=== PATIENT | female | born 1965 | race Caucasian/White ===

== ENCOUNTER 2022-08-11 05:08 | Observation (INO) | payer BC ==
[2022-08-11] MEDS ORDERED: PROTONIX 40 MG IV IV ONE ×2 (05:42→05:50)
[2022-08-11] MEDS ORDERED: BABY ASPIRIN 81 MG CHEW PO ONE (05:42)
[2022-08-11] MEDS ORDERED: Pepcid 20 MG VIAL IV ONE ×2 (05:42→05:50)
[2022-08-11] MEDS ORDERED: Nitrostat 0.4 MG (ED) SL ONE ×2 (05:42→05:50)
[2022-08-11] MEDS ORDERED: Zofran 4 MG/2 ML VIAL IV ONE (05:42)
--- NOTE | 2022-08-11 05:47 | ERPHSYRPT ---
- History of Present Illness Time Seen by Provider: 08/11/22 05:46 Historian: patient Exam Limitations: no limitations Patient Subjective Stated Complaint: chest pain/back pain since Thursday Triage Nursing Assessment: Pt ambulated into ER without difficulty. Pt alert and oriented x4, cooperative. Pt c/o midsternal chest pain since Thursday which radiates to her back. Pt describes it as sharp. Pt denies any sob. Pt c/o nausea, denies any vomiting, c/o some occasional dizziness. Physician History: 2 day hx for chest pain in this 57 yr old lady. She had similar but right sided several years ago found to be an ulcer. She is going for colonoscopy soon for her colitis; and seeing today in followup for thyroid adjustment of meds. She has never had cardiac conditions or even hptn or positive family hx or even full cardiac work up. Chest is clear without M. Abd soft and nontender without peritoneal signs. she has treated ulcerative colitis Timing/Duration: yesterday Activities at Onset: none Quality: fullness, pressure Location: substernal Chest Pain Radiation: back Severity of Pain-Max: moderate Severity of Pain-Current: moderate Modifying Factors: Improves With: nothing Associated Symptoms: nausea, dizziness, back pain Prior Chest Pain/Cardiac Workup: no prior cardiac workup, non-cardiac Nitro Today/Relief: 0.4 mg x 1, provided by ED, mild relief Aspirin Treatment Today: 81 mg x 4, provided by ED Allergies/Adverse Reactions: shrimp Adverse Reaction (Intermediate, Verified 08/11/22 05:23) Headache Home Medications: Dicyclomine HCl 1 tab PO Q6H PRN PRN 08/11/22 [History] Levothyroxine Sodium [Synthroid] 137 mcg PO DAILY 08/11/22 [History] Mesalamine 1.2 gm PO BID 08/11/22 [History] Hx Tetanus, Diphtheria Vaccination/Date Given: No Hx Influenza Vaccination/Date Given: No Hx Pneumococcal Vaccination/Date Given: No Travel Risk - International Travel Have you traveled outside of the country in past 3 weeks: No - Coronavirus Screening Are you exhibiting any of the following symptoms?: No Close contact with a COVID-19 positive Pt in past 14-21 Days: No - Vaccine Status Have you recieved a Covid-19 vaccination: No - Review of Systems Constitutional: No Fever, No Chills Eyes: No Symptoms Ears, Nose, & Throat: No Symptoms Respiratory: No Cough, No Dyspnea Cardiac: Chest Pain, No Edema, No Syncope Abdominal/Gastrointestinal: No Abdominal Pain, No Nausea, No Vomiting, No Diarrhea Genitourinary Symptoms: No Dysuria Musculoskeletal: Back Pain, No Neck Pain Skin: No Rash Neurological: No Dizziness, No Focal Weakness, No Sensory Changes Psychological: No Symptoms Endocrine: No Symptoms All Other Systems: Reviewed and Negative - Past Medical History Pertinent Past Medical History: Yes Neurological History: Migraines ENT History: No Pertinent History Cardiac History: Angina, High Cholesterol Respiratory History: No Pertinent History Endocrine Medical History: No Pertinent History Musculoskeletal History: No Pertinent History GI Medical History: Colitis, GERD History: No Pertinent History Psycho-Social History: Anxiety Female Reproductive Disorders: No Pertinent History - Past Surgical History Past Surgical History: Yes Neuro Surgical History: No Pertinent History Cardiac: No Pertinent History Respiratory: No Pertinent History Gastrointestinal: No Pertinent History Genitourinary: No Pertinent History Musculoskeletal: No Pertinent History Female Surgical History: Hysterectomy Other Surgical History: thyroidectomy - Social History Smoking Status: Never smoker Exposure to second hand smoke: No Drug Use: none Patient Lives Alone: No - Nursing Vital Signs Nursing Vital Signs: Initial Vital Signs Temperature 97.9 F 08/11/22 05:09 Pulse Rate 94 H 08/11/22 05:09 Respiratory Rate 18 08/11/22 05:09 Blood Pressure 121/71 08/11/22 05:09 O2 Sat by Pulse Oximetry 95 08/11/22 05:09 Pain Scale Pain Intensity 8 - Physical Exam General Appearance: no apparent distress, alert Eye Exam: PERRL/EOMI, eyes nml inspection Ears, Nose, Throat Exam: normal ENT inspection, moist mucous membranes Neck Exam: normal inspection, non-tender, supple, full range of motion Respiratory Exam: normal breath sounds, lungs clear, No respiratory distress Cardiovascular Exam: regular rate/rhythm, normal heart sounds Gastrointestinal/Abdomen Exam: soft, No tenderness, No mass Pelvic Exam: deferred Rectal Exam: deferred Back Exam: normal inspection, No CVA tenderness, No vertebral tenderness Extremity Exam: normal inspection, normal range of motion Neurologic Exam: alert, oriented x 3, cooperative, normal mood/affect, sensation nml, No motor deficits Skin Exam: normal color, warm, dry SpO2 Interpretation: borderline oxygenation SpO2: 95 O2 Delivery: Room Air - Course Nursing assessment & vital signs reviewed: Yes EKG Interpreted by Me: Sinus Rhythm, NORMAL AXIS, NORMAL INTERVALS, Non-specific ST Changes, Other (low voltage QRS) - Radiology Exams Chest X-ray Interpretation: Reviewed by me, Other (interstitial markings and RUL and hilar nodules) Ordered Tests: Active Orders 24 hr Category Date Time Status EKG-ER Only STAT Care 08/11/22 05:42 Active IV Insertion STAT Care 08/11/22 05:42 Active Pulse Oximetry (ED) STAT Care 08/11/22 05:42 Active CHEST 1 VIEW (PORTABLE) Stat Exams 08/11/22 05:42 Taken CHEST WITH CONTRAST [CT] Stat Exams 08/11/22 06:28 Ordered AMYLASE Stat Lab 08/11/22 06:04 Received CBC W DIFF Stat Lab 08/11/22 06:04 Completed CMP Stat Lab 08/11/22 06:04 Received D-DIMER QUANTITATIVE Stat Lab 08/11/22 06:04 Completed LIPASE Stat Lab 08/11/22 06:04 Received Lactic Acid Stat Lab 08/11/22 05:42 Completed NT PRO BNPII Stat Lab 08/11/22 06:04 Completed T4 (Thyroxine) Stat Lab 08/11/22 06:04 Received TROPONIN Q4H Lab 08/11/22 06:04 Completed TROPONIN Q4H Lab 08/11/22 09:45 Ordered TROPONIN Q4H Lab 08/11/22 13:45 Ordered TSH, 3RD Generation Stat Lab 08/11/22 06:04 Received Medication Summary Generic Name Dose Route Start Last Admin Trade Name Freq PRN Reason Stop Dose Admin Sodium Chloride 1,000 mls @ 100 mls/hr 08/11/22 05:45 08/11/22 05:56 Sodium Chloride 0.9% 1000 Ml IV 09/10/22 05:44 100 mls/hr .Q10H CORI Administration Discontinued Medications Generic Name Dose Route Start Last Admin Trade Name Freq PRN Reason Stop Dose Admin Aspirin 324 mg 08/11/22 05:42 08/11/22 05:51 Aspirin 81 Mg Tab.Chew PO 08/11/22 05:43 324 mg STAT ONE Administration Aspirin Confirm 08/11/22 05:50 Aspirin 81 Mg Tab.Chew Administered 08/11/22 05:51 Dose 324 mg .ROUTE .STK-MED ONE Methylprednisolone Sodium 0 mg 08/11/22 06:34 Succinate 40 mg/ Sterile Water IV 08/11/22 06:35 1 ml STAT STA Diphenhydramine HCl 50 mg 08/11/22 06:37 Diphenhydramine Hcl 50 Mg/Ml Vial IV 08/11/22 06:38 STAT ONE Famotidine 20 mg 08/11/22 05:42 08/11/22 05:56 Famotidine 20 Mg/1 Vial IV 08/11/22 05:43 20 mg STAT ONE Administration Famotidine Confirm 08/11/22 05:50 Famotidine 20 Mg/1 Vial Administered 08/11/22 05:51 Dose 20 mg IV .STK-MED ONE Nitroglycerin 0.4 mg 08/11/22 05:42 08/11/22 05:51 Nitroglycerin 0.4 Mg (Ed) 0.4 Mg Tab.Subl SL 08/11/22 05:43 0.4 mg STAT ONE Administration Nitroglycerin Confirm 08/11/22 05:50 Nitroglycerin 0.4 Mg (Ed) 0.4 Mg Tab.Subl Administered 08/11/22 05:51 Dose 0.4 mg SL .STK-MED ONE Ondansetron HCl 4 mg 08/11/22 05:42 08/11/22 05:56 Ondansetron Hcl 4 Mg/2 Ml Vial IV 08/11/22 05:43 4 mg STAT ONE Administration Ondansetron HCl Confirm 08/11/22 05:50 Ondansetron Hcl 4 Mg/2 Ml Vial Administered 08/11/22 05:51 Dose 4 mg .ROUTE .STK-MED ONE Pantoprazole Sodium 40 mg 08/11/22 05:42 08/11/22 05:56 Pantoprazole 40 Mg Vial IV 08/11/22 05:43 40 mg STAT ONE Administration Pantoprazole Sodium Confirm 08/11/22 05:50 Pantoprazole 40 Mg Vial Administered 08/11/22 05:51 Dose 40 mg IV .STK-MED ONE Lab/Rad Data: Laboratory Result Diagrams 08/11/22 06:04 Laboratory Results 08/11/22 08/11/22 08/11/22 Range/Units 06:04 06:04 06:04 WBC (4.0-10.5) x10^3/uL RBC (4.1-5.4) x10^6/uL Hgb (12.0-16.0) g/dL Hct (35-47) % MCV (78-100) fL MCH (26-32) pg MCHC (32-36) g/dL RDW (11.5-14.0) % Plt Count (150-450) x10^3/uL MPV (7.5-11.0) fL Gran % (36.0-66.0) % Immature Gran % (Auto) (0.00-0.4) % Nucleat RBC Rel Count (0.00-0.1) % Eos # (Auto) (0-0.5) x10^3/uL Immature Gran # (Auto) (0.00-0.03) x10^3u/L Absolute Lymphs (auto) (1.0-4.6) x10^3/uL Absolute Monos (auto) (0.0-1.3) x10^3/uL Absolute Nucleated RBC (0.00-0.01) x10^3u/L Lymphocytes % (24.0-44.0) % Monocytes % (0.0-12.0) % Eosinophils % (0.00-5.0) % Basophils % (0.0-0.4) % Absolute Granulocytes (1.4-6.9) x10^3/uL Basophils # (0-0.4) x10^3/uL D-Dimer 2.62 H* (0.0-0.50) mg/L Lactic Acid (0.4-2.0) Troponin I < 0.012 (0.000-0.034) ng/mL NT-Pro-B Natriuret Pep 62.3 (<300) pg/mL 08/11/22 08/11/22 Range/Units 06:04 05:42 WBC 5.6 (4.0-10.5) x10^3/uL RBC 4.65 (4.1-5.4) x10^6/uL Hgb 13.8 (12.0-16.0) g/dL Hct 41.9 (35-47) % MCV 90.1 (78-100) fL MCH 29.7 (26-32) pg MCHC 32.9 (32-36) g/dL RDW 11.7 (11.5-14.0) % Plt Count 148 L (150-450) x10^3/uL MPV 9.2 (7.5-11.0) fL Gran % 69.5 H (36.0-66.0) % Immature Gran % (Auto) 0.2 (0.00-0.4) % Nucleat RBC Rel Count 0.0 (0.00-0.1) % Eos # (Auto) 0.06 (0-0.5) x10^3/uL Immature Gran # (Auto) 0.01 (0.00-0.03) x10^3u/L Absolute Lymphs (auto) 0.97 L (1.0-4.6) x10^3/uL Absolute Monos (auto) 0.63 (0.0-1.3) x10^3/uL Absolute Nucleated RBC 0.00 (0.00-0.01) x10^3u/L Lymphocytes % 17.4 L (24.0-44.0) % Monocytes % 11.3 (0.0-12.0) % Eosinophils % 1.1 (0.00-5.0) % Basophils % 0.5 (0.0-0.4) % Absolute Granulocytes 3.87 (1.4-6.9) x10^3/uL Basophils # 0.03 (0-0.4) x10^3/uL D-Dimer (0.0-0.50) mg/L Lactic Acid 1.0 (0.4-2.0) Troponin I (0.000-0.034) ng/mL NT-Pro-B Natriuret Pep (<300) pg/mL - Progress Progress: improved, re-examined Air Movement: good Progress Note: 08/11/22 06:15 pt was advised to follow-up with her DrFabian for right lung nodules. 08/11/22 06:46 pt advised of elevated D dimer risks and benefits of allergy protocol and CT and she agrees to proceed. discussed findings with in consult with Dr. Reveles and he and pt agree for coming in under obs and completing trop series and for allergy protocol for PE protocol. results and dispo discussed and agreed on by pt. 08/11/22 06:48 Blood Culture(s) Obtained: No Antibiotics given: No Discussed with : Lizbeth Will see patient in: hospital (observation) Counseled pt/family regarding: lab results, diagnosis, need for follow-up, rad results Medical Desision Making - Discussion of managment Care discussed with:: on-call "doc" Reviewed:: Test results, Need for additional workup Agreed on:: Treatment plan, need for follow-up, decision to admit, place in obs Will see patient: in hospital - Departure Departure Disposition: Observation Clinical Impression: right lung nodules, Chest pain, Elevated d-dimer Clinical Impression: (Ruled Out): Chest pain as manifestation of blood transfusion reaction Condition: Good Critical Care Time: No Referrals: BORIS MCGINNIS PA [Primary Care Provider] - Follow up/PCP as directed Additional Instructions: followup with your DrFabian for right lung nodules
[2022-08-11] MEDS ORDERED: BABY ASPIRIN 81 MG CHEW ONE (05:50)
[2022-08-11] MEDS ORDERED: Zofran 4 MG/2 ML VIAL ONE (05:50)
[2022-08-11] MEDS: Sodium Chloride 0.9% 1000 ML 1,000 ML IV SCH ×2 (05:56→16:20)
[2022-08-11 06:04] LABS: Absolute Neutrophil Ct (ANC) 3.87 x10^3/uL (1.4-6.9); BASOPHIL % 0.5 % (0.0-0.4); Basophil (Absolute #) 0.03 x10^3/uL (0-0.4); Eosinophil % 1.1 % (0.00-5.0); Eosinophil (Absolute #) 0.06 x10^3/uL (0-0.5); Hematocrit 41.9 % (35-47); Hemoglobin 13.8 g/dL (12.0-16.0); IMMATURE GRAN # 0.01 x10^3u/L (0.00-0.03); IMMATURE GRAN % 0.2 % (0.00-0.4); Lymphocyte (Absolute #) 0.97 x10^3/uL (1.0-4.6); Lymphocytes % 17.4 % (24.0-44.0); Mean Cell Volume 90.1 fL (78-100); Mean Corpuscular Hemoglobin 29.7 pg (26-32); Mean Corpuscular Hgb Concent. 32.9 g/dL (32-36); Mean Platelet Volume 9.2 fL (7.5-11.0); Monocyte (Absolute #) 0.63 x10^3/uL (0.0-1.3); Monocytes % 11.3 % (0.0-12.0); Neutrophil % 69.5 % (36.0-66.0); Platelet Count 148 x10^3/uL (150-450); Red Blood Count 4.65 x10^6/uL (4.1-5.4); Red Cell Distribution Width 11.7 % (11.5-14.0); White Blood Count 5.6 x10^3/uL (4.0-10.5)
[2022-08-11] MEDS ORDERED: solu-MEDROL 40 MG, Sterile H2O 10 ml 1 ML IV STA ×2 (06:34)
[2022-08-11] MEDS ORDERED: BENADRYL 50 MG/ML IV ONE (06:37)
[2022-08-11] MEDS ORDERED: solu-MEDROL ONE ×2 (06:46→06:48)
[2022-08-11] MEDS ORDERED: Sterile H2O 10 ml IJ ONE (06:46)
[2022-08-11 06:57] LABS: ALBUMIN 4.5 g/dL (3.5-5.0); ALKALINE PHOSPHATASE 116 U/L (38-126); AMYLASE 55 U/L (30-110); ANION GAP 14.2 MEQ/L (5-15); BLOOD UREA NITROGEN 11 mg/dL (7-17); CHLORIDE 103 mmol/L (98-107); Calcium 9.1 mg/dL (8.4-10.2); Carbon Dioxide 24 mmol/L (22-30); Creatinine 1 0.84 mg/dL (0.52-1.04); EST GLOMERULAR FILTRATION RATE > 60.0 ML/MIN; Glucose 122 mg/dL (74-106); LIPASE 68 U/L (23-300); Potassium 3.7 mmol/L (3.5-5.1); SGOT/AST 39 U/L (14-36); SGPT/ALT 51 U/L (0-35); SODIUM 138 mmol/L (137-145); TSH, 3RD Generation 0.896 mIU/L (0.47-4.68); Total Protein 7.7 g/dL (6.3-8.2)
[2022-08-11 07:00] LABS: INFLUENZA A NEGATIVE (NEGATIVE); INFLUENZA B NEGATIVE (NEGATIVE); RESPIRATORY SYNCTIAL VIRUS NEGATIVE (Negative); SARS-CoV-2 Xpert Express NEGATIVE (NEGATIVE)
[2022-08-11] MEDS ORDERED: DUONEB 0.5-3 MG/3 ml Neb IH PRN (08:45)
[2022-08-11] MEDS ORDERED: MILK OF MAGNESIA 30 ML PO PRN (08:45)
[2022-08-11] MEDS ORDERED: MAALOX ES 30 ML UNIT DOSE PO PRN (08:45)
[2022-08-11] MEDS ORDERED: MORPHINE SULFATE 4 MG INJ IV PRN (08:45)
[2022-08-11] MEDS ORDERED: HUMULIN R SQ PRN (08:45)
[2022-08-11] MEDS ORDERED: Zofran 4 MG/2 ML VIAL IV PRN ×2 (08:45)
[2022-08-11] MEDS ORDERED: Senokot-S Tablet PO PRN (08:45)
[2022-08-11] MEDS ORDERED: Ativan 1 MG PO PRN (08:45)
--- NOTE | 2022-08-11 08:53 | XRAY ---
Indication: Chest pain. Comparison: None Portable chest demonstrates incidental small right apical and bilateral hilar calcified granulomas. Remaining heart and lungs unremarkable. Bony thorax intact with osteopenia.
[2022-08-11] MEDS ORDERED: SYNTHROID 112 MCG PO SCH (09:00)
[2022-08-11] MEDS ORDERED: SYNTHROID 25 MCG PO SCH (09:00)
[2022-08-11] MEDS ORDERED: BENADRYL 50 MG/ML IV SCH (09:30)
--- NOTE | 2022-08-11 11:37 | XRAY ---
Indication: Chest pain. Elevated d-dimer. Multiple contiguous axial images obtained through the chest using 100 cc Isovue 370 contrast and PE protocol. Comparison: None Good opacification of the pulmonary arteries to include the lobar and segmental branches. Mild respiration artifact upper lungs limits evaluation for pulmonary embolus. No obvious pulmonary embolus. Heart is not enlarged. Aorta is normal in course and caliber. No pathologic mediastinal/hilar lymphadenopathy. Small hiatal hernia. Lungs demonstrates minimal bilateral dependent atelectasis and small right upper lobe calcified granuloma. No suspicious pulmonary mass, infiltrate, or effusion. Bony thorax intact. Limited upper abdomen demonstrates fatty liver Impression: 1. Mild respiration artifact limits pulmonary embolus evaluation. No obvious pulmonary embolus. 2. Incidental right upper lobe calcific granuloma, small hiatal hernia, and fatty liver. 3. Remaining CT chest with contrast exam is negative.
[2022-08-11] MEDS ORDERED: BENTYL 20 MG PO PRN (12:22)
[2022-08-11] MEDS ORDERED: MEDICATION INTERVENTION MC SCH (12:30)
[2022-08-11] MEDS: TYLENOL 325 MG PO PRN (14:32)
[2022-08-11] MEDS ORDERED: PATIENT OWN MEDICATION PO SCH (17:00)
--- NOTE | 2022-08-11 17:26 | PCM.HP ---
History of Present Illness - Chief Complaint Chief Complaint: chest pain 1-2 days History of Present Illness: is a 57 year old female came to ER with right sidechest pain for 1-2 days. She had similar but right sided several years ago found to be an ulcer. She is going for colonoscopy soon for her colitis; and seeing today in followup for thyroid adjustment of meds. she has been treated for ulcerative colitis Timing/Duration: yesterday Activities at Onset: none Quality: fullness, pressure Location: substernal Chest Pain Radiation: back Severity of Pain-Max: moderate Severity of Pain-Current: moderate Modifying Factors: Improves With: nothing Associated Symptoms: nausea, dizziness, back pain Prior Chest Pain/Cardiac Workup: no prior cardiac workup, non-cardiac Nitro Today/Relief: 0.4 mg x 1, provided by ED, mild relief Aspirin Treatment Today: 81 mg x 4, provided by ED - Review of Systems Constitutional: No Fever, No Chills Eyes: No Symptoms Ears, Nose, & Throat: No Symptoms Respiratory: No Cough, No Short Of Breath Cardiac: Chest Pain, No Edema, No Syncope Abdominal/Gastrointestinal: No Abdominal Pain, No Nausea, No Vomiting, No Diarrhea Genitourinary Symptoms: No Dysuria Musculoskeletal: No Back Pain, No Neck Pain Skin: No Rash Neurological: No Dizziness, No Focal Weakness, No Sensory Changes Psychological: No Symptoms Endocrine: No Symptoms Hematologic/Lymphatic: No Symptoms Immunological/Allergic: No Symptoms Medications & Allergies Home Medications: Home Medication List Dicyclomine HCl 1 tab PO Q6H PRN PRN 08/11/22 [History Confirmed 08/11/22] Levothyroxine Sodium [Synthroid] 137 mcg PO DAILY 08/11/22 [History Confirmed 08/11/22] Mesalamine 1.2 gm PO BID 08/11/22 [History Confirmed 08/11/22] Allergies/Adverse Reactions: Allergies Allergy/AdvReac Type Severity Reaction Status Date / Time shrimp AdvReac Intermediate Headache Verified 08/11/22 05:23 - Past Medical History Past Medical History: Yes Neurological History: Migraines ENT History: No Pertinent History Cardiac History: Angina, High Cholesterol Respiratory History: No Pertinent History Endocrine Medical History: No Pertinent History Musculoskelatal History: No Pertinent History GI Medical History: Colitis, GERD History: No Pertinent History Pyscho-Social History: Anxiety Reproductive Disorders: No Pertinent History - Past Surgical History Past Surgical History: Yes Neuro Surgical History: No Pertinent History Cardiac History: No Pertinent History Respiratory Surgery: No Pertinent History GI Surgical History: No Pertinent History Genitourinary Surgical Hx: No Pertinent History Musculskeletal Surgical Hx: No Pertinent History Female Surgical History: Hysterectomy Other Surgical History: thyroidectomy - Social History Smoking Status: Never smoker Exposure to second hand smoke: No Alcohol: Rarely Drug Use: none - Physical Exam Vital Signs: Vital Signs - 24 hr Temp Pulse Pulse Resp BP Pulse Ox 08/11/22 15:45 97.9 F 94 H 16 118/76 93 L 08/11/22 13:42 94 H 12 96 08/11/22 12:00 97 08/11/22 11:47 97.9 F 71 16 119/60 97 08/11/22 08:54 97.9 F 76 16 120/74 94 L 08/11/22 08:45 94 L 08/11/22 08:42 97.9 F 76 16 120/74 94 L 08/11/22 08:00 78 16 102/69 92 L 08/11/22 07:00 80 16 119/68 91 L 08/11/22 06:50 95 08/11/22 06:13 89 18 109/74 94 L 08/11/22 05:50 101 H 16 124/79 95 08/11/22 05:48 95 08/11/22 05:13 94 H 08/11/22 05:09 97.9 F 94 H 18 121/71 95 General Appearance: no apparent distress, alert Neurologic Exam: alert, oriented x 3, cooperative, normal mood/affect, nml cerebellar function, nml station & gait, sensation nml, No motor deficits Eye Exam: PERRL/EOMI, eyes nml inspection Ears, Nose, Throat Exam: normal ENT inspection, TMs normal, pharynx normal, moist mucous membranes Neck Exam: normal inspection, non-tender, supple, full range of motion Respiratory Exam: normal breath sounds, lungs clear, No respiratory distress Cardiovascular Exam: regular rate/rhythm, normal heart sounds, normal peripheral pulses Gastrointestinal/Abdomen Exam: soft, normal bowel sounds, No tenderness, No mass Back Exam: normal inspection, normal range of motion, No CVA tenderness, No vertebral tenderness Extremity Exam: normal inspection, normal range of motion, pelvis stable Skin Exam: normal color, warm, dry, No rash Lymphatic Exam: No adenopathy Results - Labs Lab/Micro Results: Lab Results-Last 24 Hours 08/11/22 08/11/22 08/11/22 Range/Units 04:30 05:42 06:04 WBC 5.6 (4.0-10.5) x10^3/uL RBC 4.65 (4.1-5.4) x10^6/uL Hgb 13.8 (12.0-16.0) g/dL Hct 41.9 (35-47) % MCV 90.1 (78-100) fL MCH 29.7 (26-32) pg MCHC 32.9 (32-36) g/dL RDW 11.7 (11.5-14.0) % Plt Count 148 L (150-450) x10^3/uL MPV 9.2 (7.5-11.0) fL Gran % 69.5 H (36.0-66.0) % Immature Gran % (Auto) 0.2 (0.00-0.4) % Nucleat RBC Rel Count 0.0 (0.00-0.1) % Eos # (Auto) 0.06 (0-0.5) x10^3/uL Immature Gran # (Auto) 0.01 (0.00-0.03) x10^3u/L Absolute Lymphs (auto) 0.97 L (1.0-4.6) x10^3/uL Absolute Monos (auto) 0.63 (0.0-1.3) x10^3/uL Absolute Nucleated RBC 0.00 (0.00-0.01) x10^3u/L Lymphocytes % 17.4 L (24.0-44.0) % Monocytes % 11.3 (0.0-12.0) % Eosinophils % 1.1 (0.00-5.0) % Basophils % 0.5 (0.0-0.4) % Absolute Granulocytes 3.87 (1.4-6.9) x10^3/uL Basophils # 0.03 (0-0.4) x10^3/uL D-Dimer (0.0-0.50) mg/L Sodium (137-145) mmol/L Potassium (3.5-5.1) mmol/L Chloride (98-107) mmol/L Carbon Dioxide (22-30) mmol/L Anion Gap (5-15) MEQ/L BUN (7-17) mg/dL Creatinine (0.52-1.04) mg/dL Estimated GFR ML/MIN Glucose (74-106) mg/dL POC Glucometer (74 to 106) mg/dL Hemoglobin A1c 5.96 (4.5-6.0) % Lactic Acid 1.0 (0.4-2.0) Calcium (8.4-10.2) mg/dL Total Bilirubin (0.2-1.3) mg/dL AST (14-36) U/L ALT (0-35) U/L Alkaline Phosphatase (38-126) U/L Troponin I (0.000-0.034) ng/mL NT-Pro-B Natriuret Pep (<300) pg/mL Serum Total Protein (6.3-8.2) g/dL Albumin (3.5-5.0) g/dL Amylase (30-110) U/L Lipase (23-300) U/L Thyroxine (T4) (5.53-10.96) ug/dL TSH 3rd Generation (0.47-4.68) mIU/L Influenza Type A Ag (NEGATIVE) Influenza Type B Ag (NEGATIVE) RSV (PCR) (Negative) SARS-CoV-2 (PCR) (NEGATIVE) 08/11/22 08/11/22 08/11/22 Range/Units 06:04 06:04 06:04 WBC (4.0-10.5) x10^3/uL RBC (4.1-5.4) x10^6/uL Hgb (12.0-16.0) g/dL Hct (35-47) % MCV (78-100) fL MCH (26-32) pg MCHC (32-36) g/dL RDW (11.5-14.0) % Plt Count (150-450) x10^3/uL MPV (7.5-11.0) fL Gran % (36.0-66.0) % Immature Gran % (Auto) (0.00-0.4) % Nucleat RBC Rel Count (0.00-0.1) % Eos # (Auto) (0-0.5) x10^3/uL Immature Gran # (Auto) (0.00-0.03) x10^3u/L Absolute Lymphs (auto) (1.0-4.6) x10^3/uL Absolute Monos (auto) (0.0-1.3) x10^3/uL Absolute Nucleated RBC (0.00-0.01) x10^3u/L Lymphocytes % (24.0-44.0) % Monocytes % (0.0-12.0) % Eosinophils % (0.00-5.0) % Basophils % (0.0-0.4) % Absolute Granulocytes (1.4-6.9) x10^3/uL Basophils # (0-0.4) x10^3/uL D-Dimer 2.62 H* (0.0-0.50) mg/L Sodium 138 (137-145) mmol/L Potassium 3.7 (3.5-5.1) mmol/L Chloride 103 (98-107) mmol/L Carbon Dioxide 24 (22-30) mmol/L Anion Gap 14.2 (5-15) MEQ/L BUN 11 (7-17) mg/dL Creatinine 0.84 (0.52-1.04) mg/dL Estimated GFR > 60.0 ML/MIN Glucose 122 H (74-106) mg/dL POC Glucometer (74 to 106) mg/dL Hemoglobin A1c (4.5-6.0) % Lactic Acid (0.4-2.0) Calcium 9.1 (8.4-10.2) mg/dL Total Bilirubin 0.70 (0.2-1.3) mg/dL AST 39 H (14-36) U/L ALT 51 H (0-35) U/L Alkaline Phosphatase 116 (38-126) U/L Troponin I < 0.012 (0.000-0.034) ng/mL NT-Pro-B Natriuret Pep (<300) pg/mL Serum Total Protein 7.7 (6.3-8.2) g/dL Albumin 4.5 (3.5-5.0) g/dL Amylase 55 (30-110) U/L Lipase 68 (23-300) U/L Thyroxine (T4) (5.53-10.96) ug/dL TSH 3rd Generation 0.896 (0.47-4.68) mIU/L Influenza Type A Ag (NEGATIVE) Influenza Type B Ag (NEGATIVE) RSV (PCR) (Negative) SARS-CoV-2 (PCR) (NEGATIVE) 08/11/22 08/11/22 08/11/22 Range/Units 06:04 06:04 06:20 WBC (4.0-10.5) x10^3/uL RBC (4.1-5.4) x10^6/uL Hgb (12.0-16.0) g/dL Hct (35-47) % MCV (78-100) fL MCH (26-32) pg MCHC (32-36) g/dL RDW (11.5-14.0) % Plt Count (150-450) x10^3/uL MPV (7.5-11.0) fL Gran % (36.0-66.0) % Immature Gran % (Auto) (0.00-0.4) % Nucleat RBC Rel Count (0.00-0.1) % Eos # (Auto) (0-0.5) x10^3/uL Immature Gran # (Auto) (0.00-0.03) x10^3u/L Absolute Lymphs (auto) (1.0-4.6) x10^3/uL Absolute Monos (auto) (0.0-1.3) x10^3/uL Absolute Nucleated RBC (0.00-0.01) x10^3u/L Lymphocytes % (24.0-44.0) % Monocytes % (0.0-12.0) % Eosinophils % (0.00-5.0) % Basophils % (0.0-0.4) % Absolute Granulocytes (1.4-6.9) x10^3/uL Basophils # (0-0.4) x10^3/uL D-Dimer (0.0-0.50) mg/L Sodium (137-145) mmol/L Potassium (3.5-5.1) mmol/L Chloride (98-107) mmol/L Carbon Dioxide (22-30) mmol/L Anion Gap (5-15) MEQ/L BUN (7-17) mg/dL Creatinine (0.52-1.04) mg/dL Estimated GFR ML/MIN Glucose (74-106) mg/dL POC Glucometer (74 to 106) mg/dL Hemoglobin A1c (4.5-6.0) % Lactic Acid (0.4-2.0) Calcium (8.4-10.2) mg/dL Total Bilirubin (0.2-1.3) mg/dL AST (14-36) U/L ALT (0-35) U/L Alkaline Phosphatase (38-126) U/L Troponin I (0.000-0.034) ng/mL NT-Pro-B Natriuret Pep 62.3 (<300) pg/mL Serum Total Protein (6.3-8.2) g/dL Albumin (3.5-5.0) g/dL Amylase (30-110) U/L Lipase (23-300) U/L Thyroxine (T4) 10.6 (5.53-10.96) ug/dL TSH 3rd Generation (0.47-4.68) mIU/L Influenza Type A Ag NEGATIVE (NEGATIVE) Influenza Type B Ag NEGATIVE (NEGATIVE) RSV (PCR) NEGATIVE (Negative) SARS-CoV-2 (PCR) NEGATIVE (NEGATIVE) 08/11/22 08/11/22 08/11/22 Range/Units 09:04 11:36 13:45 WBC (4.0-10.5) x10^3/uL RBC (4.1-5.4) x10^6/uL Hgb (12.0-16.0) g/dL Hct (35-47) % MCV (78-100) fL MCH (26-32) pg MCHC (32-36) g/dL RDW (11.5-14.0) % Plt Count (150-450) x10^3/uL MPV (7.5-11.0) fL Gran % (36.0-66.0) % Immature Gran % (Auto) (0.00-0.4) % Nucleat RBC Rel Count (0.00-0.1) % Eos # (Auto) (0-0.5) x10^3/uL Immature Gran # (Auto) (0.00-0.03) x10^3u/L Absolute Lymphs (auto) (1.0-4.6) x10^3/uL Absolute Monos (auto) (0.0-1.3) x10^3/uL Absolute Nucleated RBC (0.00-0.01) x10^3u/L Lymphocytes % (24.0-44.0) % Monocytes % (0.0-12.0) % Eosinophils % (0.00-5.0) % Basophils % (0.0-0.4) % Absolute Granulocytes (1.4-6.9) x10^3/uL Basophils # (0-0.4) x10^3/uL D-Dimer (0.0-0.50) mg/L Sodium (137-145) mmol/L Potassium (3.5-5.1) mmol/L Chloride (98-107) mmol/L Carbon Dioxide (22-30) mmol/L Anion Gap (5-15) MEQ/L BUN (7-17) mg/dL Creatinine (0.52-1.04) mg/dL Estimated GFR ML/MIN Glucose (74-106) mg/dL POC Glucometer 137 H (74 to 106) mg/dL Hemoglobin A1c (4.5-6.0) % Lactic Acid (0.4-2.0) Calcium (8.4-10.2) mg/dL Total Bilirubin (0.2-1.3) mg/dL AST (14-36) U/L ALT (0-35) U/L Alkaline Phosphatase (38-126) U/L Troponin I < 0.012 < 0.012 (0.000-0.034) ng/mL NT-Pro-B Natriuret Pep (<300) pg/mL Serum Total Protein (6.3-8.2) g/dL Albumin (3.5-5.0) g/dL Amylase (30-110) U/L Lipase (23-300) U/L Thyroxine (T4) (5.53-10.96) ug/dL TSH 3rd Generation (0.47-4.68) mIU/L Influenza Type A Ag (NEGATIVE) Influenza Type B Ag (NEGATIVE) RSV (PCR) (Negative) SARS-CoV-2 (PCR) (NEGATIVE) Accuchecks Date 08/11/22 Time 11:47 - Radiology Impressions Radiology Exams & Impressions: Radiology Procedures Category Date Time Status CHEST 1 VIEW (PORTABLE) Stat Exams 08/11/22 05:42 Completed CHEST WITH CONTRAST [CT] Stat Exams 08/11/22 08:45 Completed - Other Procedures and Tests Respiratory Therapy 08/12/22 05:00 EKG ONCE 08/13/22 05:00 EKG ONCE 08/14/22 05:00 EKG ONCE Assessment/Plan (1) Chest pain Current Visit: Yes Status: Acute Qualifiers: Chest pain type: other chest pain Qualified Code(s): R07.89 - Other chest pain; R07.8 - Other chest pain Assessment & Plan: Chief Complaint Diagnosis chest pain 1-2 days Allergies Allergy/AdvReac Type Severity Reaction Status Date / Time shrimp AdvReac Intermediate Headache Verified 08/11/22 05:23 Vital Signs (Last 24 hours) Temp Pulse Pulse Resp BP Pulse Ox 08/11/22 15:45 97.9 F 94 H 16 118/76 93 L 08/11/22 13:42 94 H 12 96 08/11/22 12:00 97 08/11/22 11:47 97.9 F 71 16 119/60 97 08/11/22 08:54 97.9 F 76 16 120/74 94 L 08/11/22 08:45 94 L 08/11/22 08:42 97.9 F 76 16 120/74 94 L 08/11/22 08:00 78 16 102/69 92 L 08/11/22 07:00 80 16 119/68 91 L 08/11/22 06:50 95 08/11/22 06:13 89 18 109/74 94 L 08/11/22 05:50 101 H 16 124/79 95 08/11/22 05:48 95 08/11/22 05:13 94 H 08/11/22 05:09 97.9 F 94 H 18 121/71 95 Home Medications Medication Instructions Recorded Confirmed Last Taken Type Dicyclomine HCl 1 tab PO Q6H PRN PRN 08/11/22 08/11/22 08/10/22 19:00 History Levothyroxine Sodium [Synthroid] 137 mcg PO DAILY 08/11/22 08/11/22 08/11/22 04:00 History Mesalamine 1.2 gm PO BID 08/11/22 08/11/22 08/10/22 19:00 History Current Medications Generic Name Dose Route Start Last Admin Trade Name Freq PRN Reason Stop Dose Admin Acetaminophen 650 mg 08/11/22 08:45 08/11/22 14:32 Acetaminophen 325 Mg Tablet PO 09/10/22 08:44 650 mg Q4H PRN PRN Administration PAIN AND/OR FEVER Al Hydrox/Mg Hydrox/Simethicone 30 ml 08/11/22 08:45 Mag Hydrox/Al Hydrox/Simeth 30 Ml Udcup PO 09/10/22 08:44 Q4H PRN PRN INDIGESTION Aspirin 325 mg 08/12/22 10:00 Aspirin 325 Mg Tablet.Ec PO 09/11/22 09:59 DAILY CORI Dicyclomine HCl 20 mg 08/11/22 12:22 Dicyclomine Hcl 20 Mg Tablet PO 09/10/22 12:21 Q6H PRN PRN STOMACH ACHES Famotidine 20 mg 08/11/22 22:00 Famotidine 20 Mg/1 Vial IV 09/10/22 21:59 Q12HT CORI Sodium Chloride 1,000 mls @ 100 mls/hr 08/11/22 05:45 08/11/22 16:20 Sodium Chloride 0.9% 1000 Ml IV 09/10/22 05:44 100 mls/hr .Q10H CORI Administration Levothyroxine Sodium 112 mcg 08/12/22 05:00 Levothyroxine Sodium 112 Mcg Tablet PO 09/10/22 08:59 0500 CORI Levothyroxine Sodium 25 mcg 08/12/22 05:00 Levothyroxine Sodium 25 Mcg Tablet PO 09/10/22 08:59 0500 CORI Lorazepam 1 mg 08/11/22 08:45 Lorazepam 1 Mg Tablet PO 09/10/22 08:44 PRN PRN CIWA SCORE Magnesium Hydroxide 30 - 60 ml 08/11/22 08:45 Magnesium Hydroxide 30 Ml Udcup PO 09/10/22 08:44 QDP PRN CONSTIPATION Morphine Sulfate 4 mg 08/11/22 08:45 Morphine Sulfate 4 Mg/Ml Injection IV 08/16/22 08:44 Q3H/PRN PRN PAIN Ondansetron HCl 4 mg 08/11/22 08:45 08/11/22 16:35 Ondansetron Hcl 4 Mg/2 Ml Vial IV 09/10/22 08:44 4 mg Q4H PRN PRN Administration NAUSEA/VOMITING Pantoprazole Sodium 40 mg 08/12/22 10:00 Pantoprazole 40 Mg Vial IV 09/11/22 09:59 Q24H10 CORI Mesalamine 1.2gm 2 each 08/11/22 17:00 Tablet PO 09/10/22 16:59 DAILY CORI Senna/Docusate Sodium 2 udtab 08/11/22 08:45 Senna/Docusate Sodium 1 Udtab Tablet PO 09/10/22 08:44 BID PRN PRN CONSTIPATION Discontinued Medications Generic Name Dose Route Start Last Admin Trade Name Freq PRN Reason Stop Dose Admin Albuterol/Ipratropium 3 ml 08/11/22 08:45 Ipratropium/Albuterol Sulfate 3 Ml Ampul.Neb IH 09/10/22 08:44 Q4HPRN PRN SHORTNESS OF BREATH/WHEEZING Aspirin 324 mg 08/11/22 05:42 08/11/22 05:51 Aspirin 81 Mg Tab.Chew PO 08/11/22 05:43 324 mg STAT ONE Administration Aspirin Confirm 08/11/22 05:50 Aspirin 81 Mg Tab.Chew Administered 08/11/22 05:51 Dose 324 mg .ROUTE .STK-MED ONE Methylprednisolone Sodium 0 mg 08/11/22 06:34 08/11/22 06:49 Succinate 40 mg/ Sterile Water IV 08/11/22 06:35 40 mg 1 ml STAT STA Administration Diphenhydramine HCl 50 mg 08/11/22 06:37 08/11/22 10:10 Diphenhydramine Hcl 50 Mg/Ml Vial IV 08/11/22 06:38 Not Given STAT ONE Diphenhydramine HCl 50 mg 08/11/22 09:30 08/11/22 09:49 Diphenhydramine Hcl 50 Mg/Ml Vial IV 08/11/22 12:00 50 mg 1XONLY CORI Administration Famotidine 20 mg 08/11/22 05:42 08/11/22 05:56 Famotidine 20 Mg/1 Vial IV 08/11/22 05:43 20 mg STAT ONE Administration Famotidine Confirm 08/11/22 05:50 Famotidine 20 Mg/1 Vial Administered 08/11/22 05:51 Dose 20 mg IV .STK-MED ONE Insulin Human Regular 0 unit 08/11/22 08:45 Insulin Regular, Human 1 Unit SQ 09/10/22 08:44 UD PRN HYPERGLYCEMIA Levothyroxine Sodium 112 mcg 08/11/22 09:00 08/11/22 10:09 Levothyroxine Sodium 112 Mcg Tablet PO 09/10/22 08:59 Not Given QAM@0700 [facility] Levothyroxine Sodium 25 mcg 08/11/22 09:00 08/11/22 10:09 Levothyroxine Sodium 25 Mcg Tablet PO 09/10/22 08:59 Not Given QAM@0700 [facility] Methylprednisolone Sodium Succinate Confirm 08/11/22 06:46 Methylprednis Sod Succ 125 Mg/2 Ml Vial Administered 08/11/22 06:47 Dose 125 mg .ROUTE .STK-MED ONE Methylprednisolone Sodium Succinate Confirm 08/11/22 06:48 Methylprednisolone Sod Suc 40m 40 Mg/Ml Vial Administered 08/11/22 06:49 Dose 40 mg .ROUTE .STK-MED ONE Miscellaneous Information 1 each 08/11/22 12:30 Medication Intervention 1 Each Each 09/10/22 12:29 .RN TO CHECK [facility] Nitroglycerin 0.4 mg 08/11/22 05:42 08/11/22 05:51 Nitroglycerin 0.4 Mg (Ed) 0.4 Mg Tab.Subl SL 08/11/22 05:43 0.4 mg STAT ONE Administration Nitroglycerin Confirm 08/11/22 05:50 Nitroglycerin 0.4 Mg (Ed) 0.4 Mg Tab.Subl Administered 08/11/22 05:51 Dose 0.4 mg SL .STK-MED ONE Ondansetron HCl 4 mg 08/11/22 05:42 08/11/22 05:56 Ondansetron Hcl 4 Mg/2 Ml Vial IV 08/11/22 05:43 4 mg STAT ONE Administration Ondansetron HCl Confirm 08/11/22 05:50 Ondansetron Hcl 4 Mg/2 Ml Vial Administered 08/11/22 05:51 Dose 4 mg .ROUTE .STK-MED ONE Pantoprazole Sodium 40 mg 08/11/22 05:42 08/11/22 05:56 Pantoprazole 40 Mg Vial IV 08/11/22 05:43 40 mg STAT ONE Administration Pantoprazole Sodium Confirm 08/11/22 05:50 Pantoprazole 40 Mg Vial Administered 08/11/22 05:51 Dose 40 mg IV .STK-MED ONE Sterile Water Confirm 08/11/22 06:46 Water For Injection,Sterile 10 Ml Vial Administered 08/11/22 06:47 Dose 10 ml IJ .STK-MED ONE Intake & Output (Last 24 hours) 08/09/22 08/10/22 08/11/22 08/12/22 11:59 11:59 11:59 11:59 Intake Total 0 280 Output Total 900 425 Balance -900 -145 Weight 98.43 kg Laboratory Results (Last 24 hours) 08/11/22 08/11/22 08/11/22 13:45 11:36 09:04 WBC RBC Hgb Hct MCV MCH MCHC RDW Plt Count MPV Gran % Immature Gran % (Auto) Nucleat RBC Rel Count Eos # (Auto) Immature Gran # (Auto) Absolute Lymphs (auto) Absolute Monos (auto) Absolute Nucleated RBC Lymphocytes % Monocytes % Eosinophils % Basophils % Absolute Granulocytes Basophils # D-Dimer Sodium Potassium Chloride Carbon Dioxide Anion Gap BUN Creatinine Estimated GFR Glucose POC Glucometer 137 H Hemoglobin A1c Lactic Acid Calcium Total Bilirubin AST ALT Alkaline Phosphatase Troponin I < 0.012 < 0.012 NT-Pro-B Natriuret Pep Serum Total Protein Albumin Amylase Lipase Thyroxine (T4) TSH 3rd Generation Influenza Type A Ag Influenza Type B Ag RSV (PCR) SARS-CoV-2 (PCR) 08/11/22 08/11/22 08/11/22 06:20 06:04 06:04 WBC RBC Hgb Hct MCV MCH MCHC RDW Plt Count MPV Gran % Immature Gran % (Auto) Nucleat RBC Rel Count Eos # (Auto) Immature Gran # (Auto) Absolute Lymphs (auto) Absolute Monos (auto) Absolute Nucleated RBC Lymphocytes % Monocytes % Eosinophils % Basophils % Absolute Granulocytes Basophils # D-Dimer Sodium Potassium Chloride Carbon Dioxide Anion Gap BUN Creatinine Estimated GFR Glucose POC Glucometer Hemoglobin A1c Lactic Acid Calcium Total Bilirubin AST ALT Alkaline Phosphatase Troponin I NT-Pro-B Natriuret Pep 62.3 Serum Total Protein Albumin Amylase Lipase Thyroxine (T4) 10.6 TSH 3rd Generation Influenza Type A Ag NEGATIVE Influenza Type B Ag NEGATIVE RSV (PCR) NEGATIVE SARS-CoV-2 (PCR) NEGATIVE 08/11/22 08/11/22 08/11/22 06:04 06:04 06:04 WBC RBC Hgb Hct MCV MCH MCHC RDW Plt Count MPV Gran % Immature Gran % (Auto) Nucleat RBC Rel Count Eos # (Auto) Immature Gran # (Auto) Absolute Lymphs (auto) Absolute Monos (auto) Absolute Nucleated RBC Lymphocytes % Monocytes % Eosinophils % Basophils % Absolute Granulocytes Basophils # D-Dimer 2.62 H* Sodium 138 Potassium 3.7 Chloride 103 Carbon Dioxide 24 Anion Gap 14.2 BUN 11 Creatinine 0.84 Estimated GFR > 60.0 Glucose 122 H POC Glucometer Hemoglobin A1c Lactic Acid Calcium 9.1 Total Bilirubin 0.70 AST 39 H ALT 51 H Alkaline Phosphatase 116 Troponin I < 0.012 NT-Pro-B Natriuret Pep Serum Total Protein 7.7 Albumin 4.5 Amylase 55 Lipase 68 Thyroxine (T4) TSH 3rd Generation 0.896 Influenza Type A Ag Influenza Type B Ag RSV (PCR) SARS-CoV-2 (PCR) 08/11/22 08/11/22 08/11/22 06:04 05:42 04:30 WBC 5.6 RBC 4.65 Hgb 13.8 Hct 41.9 MCV 90.1 MCH 29.7 MCHC 32.9 RDW 11.7 Plt Count 148 L MPV 9.2 Gran % 69.5 H Immature Gran % (Auto) 0.2 Nucleat RBC Rel Count 0.0 Eos # (Auto) 0.06 Immature Gran # (Auto) 0.01 Absolute Lymphs (auto) 0.97 L Absolute Monos (auto) 0.63 Absolute Nucleated RBC 0.00 Lymphocytes % 17.4 L Monocytes % 11.3 Eosinophils % 1.1 Basophils % 0.5 Absolute Granulocytes 3.87 Basophils # 0.03 D-Dimer Sodium Potassium Chloride Carbon Dioxide Anion Gap BUN Creatinine Estimated GFR Glucose POC Glucometer Hemoglobin A1c 5.96 Lactic Acid 1.0 Calcium Total Bilirubin AST ALT Alkaline Phosphatase Troponin I NT-Pro-B Natriuret Pep Serum Total Protein Albumin Amylase Lipase Thyroxine (T4) TSH 3rd Generation Influenza Type A Ag Influenza Type B Ag RSV (PCR) SARS-CoV-2 (PCR) Orders (Last 24 hours) Category Date Time Status Bedrest with BRP/BSC ROUTINE Activity 08/11/22 08:45 Active Up With Assistance ROUTINE Activity 08/11/22 08:45 Active Code Status Order ROUTINE Care 08/11/22 08:45 Active EKG-ER Only STAT Care 08/11/22 05:42 Completed Fall Protocol ROUTINE Care 08/11/22 08:45 Active IV Care Q6H Care 08/11/22 08:45 Active IV Insertion STAT Care 08/11/22 05:42 Completed Implement Chest Pain Pathway ROUTINE Care 08/11/22 08:45 Active POCT Glucose Check ACHS Care 08/11/22 08:[address] in Observation ROUTINE Care 08/11/22 08:45 Active Pulse Oximetry (ED) STAT Care 08/11/22 05:42 Completed Mony Thibodeaux ROUTINE Care 08/11/22 08:45 Active Telemetry q6h Care 08/11/22 08:45 Active Weight,Daily 0600 Care 08/11/22 08:45 Active Heart-Healthy Diet Diet 08/11/22 Breakfast Completed House Regular Diet Diet 08/11/22 Dinner Active CHEST 1 VIEW (PORTABLE) Stat Exams 08/11/22 05:42 Completed CHEST WITH CONTRAST [CT] Stat Exams 08/11/22 08:45 Completed AMYLASE Stat Lab 08/11/22 06:04 Completed CBC W DIFF Stat Lab 08/11/22 06:04 Completed CMP Stat Lab 08/11/22 06:04 Completed COVID/FLU/RSV Panel Stat Lab 08/11/22 06:20 Completed D-DIMER QUANTITATIVE Stat Lab 08/11/22 06:04 Completed HEMOGLOBIN A1C Urgent Lab 08/11/22 04:30 Completed LIPASE Stat Lab 08/11/22 06:04 Completed LIPID PROFILE AM.LAB Lab 08/12/22 04:00 Ordered Lactic Acid Stat Lab 08/11/22 05:42 Completed NT PRO BNPII Stat Lab 08/11/22 06:04 Completed POCT GLUCOSE Stat Lab 08/11/22 11:36 Completed T4 (Thyroxine) Stat Lab 08/11/22 06:04 Completed TROPONIN Q4H Lab 08/11/22 06:04 Completed TROPONIN Q4H Lab 08/11/22 09:04 Completed TROPONIN Q4H Lab 08/11/22 13:45 Completed TSH, 3RD Generation Stat Lab 08/11/22 06:04 Completed Acetaminophen 325 mg [Tylenol 325 mg] Med 08/11/22 08:45 Active 650 mg PO Q4H PRN PRN Albuterol/Ipratropium 3ml Neb* [DUONEB 0.5-3 MG/3 ml Med 08/11/22 08:45 Discontinued Neb] 3 ml IH Q4HPRN PRN Aspirin 81 gm Chew [Baby Aspirin 81 mg Chew] Med 08/11/22 05:50 Discontinued 324 mg .ROUTE .STK-MED ONE Aspirin 81 gm Chew [Baby Aspirin 81 mg Chew] Med 08/11/22 05:42 Discontinued 324 mg PO STAT ONE Aspirin EC 325 mg [Ecotrin 325 MG] Med 08/12/22 10:00 Active 325 mg PO DAILY Dicyclomine HCl 20 mg [Bentyl 20 mg] Med 08/11/22 12:22 Active 20 mg PO Q6H PRN PRN Diphenhydramine HCl 50 mg/ml [Benadryl 50 mg/ml] Med 08/11/22 09:30 Discontinued 50 mg IV 1XONLY Diphenhydramine HCl 50 mg/ml [Benadryl 50 mg/ml] Med 08/11/22 06:37 Discontinued 50 mg IV STAT ONE Famotidine 20 mg Vial [Pepcid 20 MG VIAL] Med 08/11/22 05:50 Discontinued 20 mg IV .STK-MED ONE Famotidine 20 mg Vial [Pepcid 20 MG VIAL] Med 08/11/22 22:00 Active 20 mg IV Q12HT Famotidine 20 mg Vial [Pepcid 20 MG VIAL] Med 08/11/22 05:42 Discontinued 20 mg IV STAT ONE Insulin Regular, Human [Humulin R] Med 08/11/22 08:45 Discontinued See Dose Instructions SQ UD PRN Levothyroxine Sodium 112 Mcg [Synthroid 112 Mcg] Med 08/12/22 05:00 Active 112 mcg PO 0500 Levothyroxine Sodium 112 Mcg [Synthroid 112 Mcg] Med 08/11/22 09:00 Discontinued 112 mcg PO QAM@0700 Levothyroxine Sodium 25 Mcg [Synthroid 25 Mcg] Med 08/12/22 05:00 Active 25 mcg PO 0500 Levothyroxine Sodium 25 Mcg [Synthroid 25 Mcg] Med 08/11/22 09:00 Discontinued 25 mcg PO QAM@0700 Lorazepam 1 mg [Ativan 1 MG] Med 08/11/22 08:45 Active 1 mg PO PRN PRN Mag Hydrox/Al Hydrox/Simeth [Maalox Es 30 ml Unit Med 08/11/22 08:45 Active Dose] 30 ml PO Q4H PRN PRN Magnesium Hydroxide 30 ml [Milk of Magnesia 30 ml Med 08/11/22 08:45 Active ] 30 - 60 ml PO QDP PRN Medication Intervention Med 08/11/22 12:30 Discontinued 1 each MC .RN TO CHECK Methylprednis Sod Succ 125 mg* [solu-MEDROL] Med 08/11/22 06:46 Discontinued 125 mg .ROUTE .STK-MED ONE Methylprednisolone Sod Suc 40M [solu-MEDROL] Med 08/11/22 06:48 Discontinued 40 mg .ROUTE .STK-MED ONE Methylprednisolone Sod Suc 40M [solu-MEDROL] 40 mg Med 08/11/22 06:34 Discontinued Water For Injection,Sterile [Sterile H2O 10 ml] 1 ml IV STAT Morphine Sulfate 4 mg Inj Med 08/11/22 08:45 Active 4 mg IV Q3H/PRN PRN NaCl 0.9% 1000 ml [Sodium Chloride 0.9% 1000 ML] 1,000 Med 08/11/22 05:45 Active ml IV 100 mls/hr Nitroglycerin 0.4 mg (Ed) [Nitrostat 0.4 MG (ED)] Med 08/11/22 05:50 Discontinued 0.4 mg SL .STK-MED ONE Nitroglycerin 0.4 mg (Ed) [Nitrostat 0.4 MG (ED)] Med 08/11/22 05:42 Discontinued 0.4 mg SL STAT ONE Ondansetron HCl 4 mg/2 ml [Zofran 4 MG/2 ML VIAL] Med 08/11/22 05:50 Discontinued 4 mg .ROUTE .STK-MED ONE Ondansetron HCl 4 mg/2 ml [Zofran 4 MG/2 ML VIAL] Med 08/11/22 08:45 Active 4 mg IV Q4H PRN PRN Ondansetron HCl 4 mg/2 ml [Zofran 4 MG/2 ML VIAL] Med 08/11/22 05:42 Discontinued 4 mg IV STAT ONE Pantoprazole 40 mg [Protonix 40 mg IV] Med 08/11/22 05:50 Discontinued 40 mg IV .STK-MED ONE Pantoprazole 40 mg [Protonix 40 mg IV] Med 08/12/22 10:00 Active 40 mg IV Q24H10 Pantoprazole 40 mg [Protonix 40 mg IV] Med 08/11/22 05:42 Discontinued 40 mg IV STAT ONE Patient Own Med [Patient Own Medication] Med 08/11/22 17:00 Active 2 each PO DAILY Senna/Docusate Sodium Tab [Senokot-S Tablet] Med 08/11/22 08:45 Active 2 udtab PO BID PRN PRN Water For Injection,Sterile [Sterile H2O 10 ml] Med 08/11/22 06:46 Discontinued 10 ml IJ .STK-MED ONE EKG ONCE RT 08/11/22 13:42 Completed EKG ONCE RT 08/12/22 05:00 Active EKG ONCE RT 08/13/22 05:00 Active EKG ONCE RT 08/14/22 05:00 Active EKG Q8HX2,QAMX3,PRN RT 08/11/22 08:45 Completed Pulse Oximetry Q4H RT 08/11/22 08:45 Completed Respiratory Therapy Consult ONCE RT 08/11/22 08:45 Completed Transfer Order Routine Transfer 08/11/22 Completed Patient Care Notes (Last 24 hours) 08/11/22 12:13 Nursing Note by Kia Machado rounded on patient. Initialized on 08/11/22 12:13 - END OF NOTE Code(s): R07.9 - CHEST PAIN, UNSPECIFIED (2) Elevated d-dimer Current Visit: Yes Status: Acute Code(s): R79.89 - OTHER SPECIFIED ABNORMAL FINDINGS OF BLOOD CHEMISTRY
[2022-08-11] MEDS: Pepcid 20 MG VIAL IV SCH (21:06)
[2022-08-11] MEDS ORDERED: MESALAMINE 1.2 GM PO SCH (22:00)
[2022-08-12] MEDS: Sodium Chloride 0.9% 1000 ML 1,000 ML IV SCH (01:49)
[2022-08-12] MEDS: TYLENOL 325 MG PO PRN (04:49)
[2022-08-12] MEDS ORDERED: SYNTHROID 25 MCG PO SCH (05:00)
[2022-08-12] MEDS ORDERED: SYNTHROID 112 MCG PO SCH (05:00)
[2022-08-12 06:03] LABS: Hematocrit 38.1 % (35-47); Hemoglobin 12.5 g/dL (12.0-16.0); Mean Cell Volume 90.9 fL (78-100); Mean Corpuscular Hemoglobin 29.8 pg (26-32); Mean Corpuscular Hgb Concent. 32.8 g/dL (32-36); Mean Platelet Volume 9.3 fL (7.5-11.0); Platelet Count 114 x10^3/uL (150-450); Red Blood Count 4.19 x10^6/uL (4.1-5.4); White Blood Count 5.3 x10^3/uL (4.0-10.5)
[2022-08-12 07:05] LABS: Risk Ratio 4.5
[2022-08-12] MEDS: Pepcid 20 MG VIAL IV SCH (09:20)
[2022-08-12] MEDS ORDERED: PROTONIX 40 MG IV IV SCH (10:00)
[2022-08-12] MEDS ORDERED: Ecotrin 325 MG PO SCH (10:00)
[2022-08-12] MEDS ORDERED: PATIENT OWN MEDICATION PO SCH (10:00)
[2022-08-12 10:59] VITALS: BP 118/67; PULSE 75; O2SAT 96
[2022-08-12] MEDS ORDERED: CLARITIN 10 MG PO ONE (12:02)
--- NOTE | 2022-08-12 12:31 | PCM.DS ---
Discharge Summary Date of Admission: 08/11/22 08:35 Admitting Physician: ALICJA VAZQUEZ Primary Care Provider: ADOLFO ESQUIVEL Allergies Allergies shrimp Adverse Reaction (Intermediate, Verified 08/11/22 05:23) Headache Hospital Summary - Hospital Course Hospital Course: Chief Complaint Diagnosis chest pain 1-2 days Allergies Allergy/AdvReac Type Severity Reaction Status Date / Time shrimp AdvReac Intermediate Headache Verified 08/11/22 05:23 Vital Signs (Last 24 hours) Temp Pulse Resp BP Pulse Ox 08/12/22 10:59 97.1 F 75 17 118/67 96 08/12/22 07:35 98.9 F 08/12/22 07:12 99.3 F 82 17 92/55 93 L 08/12/22 06:02 98.7 F 99 H 20 93/49 08/12/22 04:00 102.6 F 104 H 17 92/46 93 L 08/11/22 23:42 97.8 F 87 17 117/61 95 08/11/22 19:05 97.3 F 82 18 110/57 95 08/11/22 15:45 97.9 F 94 H 16 118/76 93 L 08/11/22 13:42 94 H 12 96 Home Medications Medication Instructions Recorded Confirmed Last Taken Type Dicyclomine HCl 1 tab PO Q6H PRN PRN 08/11/22 08/11/22 08/10/22 19:00 History Levothyroxine Sodium [Synthroid] 137 mcg PO DAILY 08/11/22 08/11/22 08/11/22 04:00 History Mesalamine 1.2 gm PO BID 08/11/22 08/11/22 08/10/22 19:00 History Fluticasone Propionate [Flonase 1 gm NS DAILY 08/12/22 Unknown Rx NASAL] Sucralfate 1 gm [Carafate 1 1 g PO BID 30 Days #60 tablet 08/12/22 Unknown Rx GM] Current Medications Generic Name Dose Route Start Last Admin Trade Name Freq PRN Reason Stop Dose Admin Acetaminophen 650 mg 08/11/22 08:45 08/12/22 04:49 Acetaminophen 325 Mg Tablet PO 09/10/22 08:44 650 mg Q4H PRN PRN Administration PAIN AND/OR FEVER Al Hydrox/Mg Hydrox/Simethicone 30 ml 08/11/22 08:45 Mag Hydrox/Al Hydrox/Simeth 30 Ml Udcup PO 09/10/22 08:44 Q4H PRN PRN INDIGESTION Aspirin 325 mg 08/12/22 10:00 08/12/22 09:19 Aspirin 325 Mg Tablet.Ec PO 09/11/22 09:59 325 mg DAILY CORI Administration Dicyclomine HCl 20 mg 08/11/22 12:22 Dicyclomine Hcl 20 Mg Tablet PO 09/10/22 12:21 Q6H PRN PRN STOMACH ACHES Famotidine 20 mg 08/11/22 22:00 08/12/22 09:20 Famotidine 20 Mg/1 Vial IV 09/10/22 21:59 20 mg Q12HT CORI Administration Fluticasone Propionate 0 gm 08/12/22 13:00 08/12/22 12:20 Fluticasone Propionate 16 Gm Bottle Nasal Rudyard NS 09/11/22 12:59 1 gm DAILY CORI Administration Sodium Chloride 1,000 mls @ 100 mls/hr 08/11/22 05:45 08/12/22 01:49 Sodium Chloride 0.9% 1000 Ml IV 09/10/22 05:44 100 mls/hr .Q10H CORI Administration Levothyroxine Sodium 112 mcg 08/12/22 05:00 08/12/22 04:53 Levothyroxine Sodium 112 Mcg Tablet PO 09/10/22 08:59 Not Given 0500 CORI Levothyroxine Sodium 25 mcg 08/12/22 05:00 08/12/22 04:54 Levothyroxine Sodium 25 Mcg Tablet PO 09/10/22 08:59 Not Given 0500 CORI Lorazepam 1 mg 08/11/22 08:45 Lorazepam 1 Mg Tablet PO 09/10/22 08:44 PRN PRN CIWA SCORE Magnesium Hydroxide 30 - 60 ml 08/11/22 08:45 Magnesium Hydroxide 30 Ml Udcup PO 09/10/22 08:44 QDP PRN CONSTIPATION Morphine Sulfate 4 mg 08/11/22 08:45 Morphine Sulfate 4 Mg/Ml Injection IV 08/16/22 08:44 Q3H/PRN PRN PAIN Ondansetron HCl 4 mg 08/11/22 08:45 08/11/22 16:35 Ondansetron Hcl 4 Mg/2 Ml Vial IV 09/10/22 08:44 4 mg Q4H PRN PRN Administration NAUSEA/VOMITING Pantoprazole Sodium 40 mg 08/12/22 10:00 08/12/22 09:20 Pantoprazole 40 Mg Vial IV 09/11/22 09:59 40 mg Q24H10 CORI Administration Mesalamine 1.2gm 1 each 08/12/22 10:00 08/12/22 05:55 Tablet PO 09/11/22 09:59 1 each BID CORI Administration Senna/Docusate Sodium 2 udtab 08/11/22 08:45 Senna/Docusate Sodium 1 Udtab Tablet PO 09/10/22 08:44 BID PRN PRN CONSTIPATION Discontinued Medications Generic Name Dose Route Start Last Admin Trade Name Freq PRN Reason Stop Dose Admin Albuterol/Ipratropium 3 ml 08/11/22 08:45 Ipratropium/Albuterol Sulfate 3 Ml Ampul.Neb IH 09/10/22 08:44 Q4HPRN PRN SHORTNESS OF BREATH/WHEEZING Aspirin 324 mg 08/11/22 05:42 08/11/22 05:51 Aspirin 81 Mg Tab.Chew PO 08/11/22 05:43 324 mg STAT ONE Administration Aspirin Confirm 08/11/22 05:50 Aspirin 81 Mg Tab.Chew Administered 08/11/22 05:51 Dose 324 mg .ROUTE .STK-MED ONE Methylprednisolone Sodium 0 mg 08/11/22 06:34 08/11/22 06:49 Succinate 40 mg/ Sterile Water IV 08/11/22 06:35 40 mg 1 ml STAT STA Administration Diphenhydramine HCl 50 mg 08/11/22 06:37 08/11/22 10:10 Diphenhydramine Hcl 50 Mg/Ml Vial IV 08/11/22 06:38 Not Given STAT ONE Diphenhydramine HCl 50 mg 08/11/22 09:30 08/11/22 09:49 Diphenhydramine Hcl 50 Mg/Ml Vial IV 08/11/22 12:00 50 mg 1XONLY CORI Administration Famotidine 20 mg 08/11/22 05:42 08/11/22 05:56 Famotidine 20 Mg/1 Vial IV 08/11/22 05:43 20 mg STAT ONE Administration Famotidine Confirm 08/11/22 05:50 Famotidine 20 Mg/1 Vial Administered 08/11/22 05:51 Dose 20 mg IV .STK-MED ONE Insulin Human Regular 0 unit 08/11/22 08:45 Insulin Regular, Human 1 Unit SQ 09/10/22 08:44 UD PRN HYPERGLYCEMIA Levothyroxine Sodium 112 mcg 08/11/22 09:00 08/11/22 10:09 Levothyroxine Sodium 112 Mcg Tablet PO 09/10/22 08:59 Not Given QAM@0700 CORI Levothyroxine Sodium 25 mcg 08/11/22 09:00 08/11/22 10:09 Levothyroxine Sodium 25 Mcg Tablet PO 09/10/22 08:59 Not Given QAM@0700 CORI Loratadine 10 mg 08/12/22 12:02 08/12/22 12:19 Loratadine 10 Mg Tablet PO 08/12/22 12:03 10 mg STAT ONE Administration Methylprednisolone Sodium Succinate Confirm 08/11/22 06:46 Methylprednis Sod Succ 125 Mg/2 Ml Vial Administered 08/11/22 06:47 Dose 125 mg .ROUTE .STK-MED ONE Methylprednisolone Sodium Succinate Confirm 08/11/22 06:48 Methylprednisolone Sod Suc 40m 40 Mg/Ml Vial Administered 08/11/22 06:49 Dose 40 mg .ROUTE .STK-MED ONE Miscellaneous Information 1 each 08/11/22 12:30 Medication Intervention 1 Each Each 09/10/22 12:29 .RN TO CHECK CORI Nitroglycerin 0.4 mg 08/11/22 05:42 08/11/22 05:51 Nitroglycerin 0.4 Mg (Ed) 0.4 Mg Tab.Subl SL 08/11/22 05:43 0.4 mg STAT ONE Administration Nitroglycerin Confirm 08/11/22 05:50 Nitroglycerin 0.4 Mg (Ed) 0.4 Mg Tab.Subl Administered 08/11/22 05:51 Dose 0.4 mg SL .STK-MED ONE Ondansetron HCl 4 mg 08/11/22 05:42 08/11/22 05:56 Ondansetron Hcl 4 Mg/2 Ml Vial IV 08/11/22 05:43 4 mg STAT ONE Administration Ondansetron HCl Confirm 08/11/22 05:50 Ondansetron Hcl 4 Mg/2 Ml Vial Administered 08/11/22 05:51 Dose 4 mg .ROUTE .STK-MED ONE Pantoprazole Sodium 40 mg 08/11/22 05:42 08/11/22 05:56 Pantoprazole 40 Mg Vial IV 08/11/22 05:43 40 mg STAT ONE Administration Pantoprazole Sodium Confirm 08/11/22 05:50 Pantoprazole 40 Mg Vial Administered 08/11/22 05:51 Dose 40 mg IV .STK-MED ONE Mesalamine 1.2gm 2 each 08/11/22 17:00 08/11/22 18:04 Tablet PO 09/10/22 16:59 1 each DAILY CORI Administration Sterile Water Confirm 08/11/22 06:46 Water For Injection,Sterile 10 Ml Vial Administered 08/11/22 06:47 Dose 10 ml IJ .STK-MED ONE Intake & Output (Last 24 hours) 08/10/22 08/11/22 08/12/22 08/13/22 11:59 11:59 11:59 11:59 Intake Total 0 3037 Output Total 900 1775 Balance -900 1262 Weight 98.43 kg 98.3 kg Laboratory Results (Last 24 hours) 08/12/22 08/12/22 08/11/22 05:58 05:58 13:45 WBC 5.3 RBC 4.19 Hgb 12.5 Hct 38.1 MCV 90.9 MCH 29.8 MCHC 32.8 RDW 12.0 Plt Count 114 L MPV 9.3 Troponin I < 0.012 Triglycerides 113 Cholesterol 169 LDL Cholesterol 91 HDL Cholesterol 38 L Heart Disease Risk Ratio 4.5 Orders (Last 24 hours) Category Date Time Status House Regular Diet Diet 08/11/22 Dinner Active Discharge Routine Discharge 08/12/22 Ordered CBC Routine Lab 08/12/22 05:58 Completed LIPID PROFILE AM.LAB Lab 08/12/22 05:58 Completed POCT GLUCOSE Stat Lab 08/11/22 11:36 Completed TROPONIN Q4H Lab 08/11/22 13:45 Completed Aspirin EC 325 mg [Ecotrin 325 MG] Med 08/12/22 10:00 Active 325 mg PO DAILY Dicyclomine HCl 20 mg [Bentyl 20 mg] Med 08/11/22 12:22 Active 20 mg PO Q6H PRN PRN Famotidine 20 mg Vial [Pepcid 20 MG VIAL] Med 08/11/22 22:00 Active 20 mg IV Q12HT Fluticasone Propionate [Flonase NASAL] Med 08/12/22 13:00 Active 0 gm NS DAILY Levothyroxine Sodium 112 Mcg [Synthroid 112 Mcg] Med 08/12/22 05:00 Active 112 mcg PO 0500 Levothyroxine Sodium 25 Mcg [Synthroid 25 Mcg] Med 08/12/22 05:00 Active 25 mcg PO 0500 Loratadine 10 mg [Claritin 10 mg] Med 08/12/22 12:02 Discontinued 10 mg PO STAT ONE Medication Intervention Med 08/11/22 12:30 Discontinued 1 each MC .RN TO CHECK Pantoprazole 40 mg [Protonix 40 mg IV] Med 08/12/22 10:00 Active 40 mg IV Q24H10 Patient Own Med [Patient Own Medication] Med 08/12/22 10:00 Active 1 each PO BID Patient Own Med [Patient Own Medication] Med 08/11/22 17:00 Discontinued 2 each PO DAILY EKG ONCE RT 08/11/22 13:42 Completed EKG ONCE RT 08/12/22 05:00 Completed EKG ONCE RT 08/13/22 05:00 Active EKG ONCE RT 08/14/22 05:00 Active Patient Care Notes (Last 24 hours) 08/12/22 08:49 Case Management Note by Jaquelin Carter S/W PATIENT- SHE CONTINUES TO DENY ANY NEW NEEDS AT TIME OF DC. SHE PLANS TO RETURN HOME TO HER PLF AT TIME OF DC Initialized on 08/12/22 08:49 - END OF NOTE 08/12/22 05:13 Nursing Note by CATERINA MINER PT TOOK OWN SUPPLY OF SYNTHROID THIS AM. Initialized on 08/12/22 05:13 - END OF NOTE - Vitals & Intake/Output Vital Signs: Vital Signs Temperature 97.1 F 08/12/22 10:59 Pulse Rate 75 08/12/22 10:59 Respiratory Rate 17 08/12/22 10:59 Blood Pressure 118/67 08/12/22 10:59 O2 Sat by Pulse Oximetry 96 08/12/22 10:59 Intake & Output: Intake & Output 08/10/22 08/11/22 08/12/22 08/13/22 11:59 11:59 11:59 11:59 Intake Total 0 3037 Output Total 900 1775 Balance -900 1262 Weight 98.43 kg 98.3 kg - Lab Result Diagrams: 08/12/22 05:58 08/11/22 06:04 Lab Results-Last 24 Hrs: Lab Results-Last 24 Hours 08/11/22 08/12/22 08/12/22 Range/Units 13:45 05:58 05:58 WBC 5.3 (4.0-10.5) x10^3/uL RBC 4.19 (4.1-5.4) x10^6/uL Hgb 12.5 (12.0-16.0) g/dL Hct 38.1 (35-47) % MCV 90.9 (78-100) fL MCH 29.8 (26-32) pg MCHC 32.8 (32-36) g/dL RDW 12.0 (11.5-14.0) % Plt Count 114 L (150-450) x10^3/uL MPV 9.3 (7.5-11.0) fL Troponin I < 0.012 (0.000-0.034) ng/mL Triglycerides 113 (30-150) mg/dL Cholesterol 169 (50-200) mg/dL LDL Cholesterol 91 (30-100) mg/dL HDL Cholesterol 38 L (40-60) mg/dL Heart Disease Risk Ratio 4.5 - Radiology Exams Ordered Rad Exams-Entire Visit: Radiology Procedures Category Date Time Status CHEST 1 VIEW (PORTABLE) Stat Exams 08/11/22 05:42 Completed CHEST WITH CONTRAST [CT] Stat Exams 08/11/22 08:45 Completed - Procedures and Test Procedures and Tests throughout Hospitalization: Therapy Orders & Screens 08/11/22 08:45 EKG Q8HX2,QAMX3,PRN Comment: Respiratory Therapy Consult ONCE Comment: Reason For Exam: 08/11/22 13:42 EKG ONCE Comment: Diagnosis: chest pain, elevated D-Dimer 08/12/22 05:00 EKG ONCE Comment: Diagnosis: chest pain, elevated D-Dimer 08/13/22 05:00 EKG ONCE Comment: Diagnosis: chest pain, elevated D-Dimer 08/14/22 05:00 EKG ONCE Comment: Diagnosis: chest pain, elevated D-Dimer Discharge Exam General Appearance: no apparent distress, alert Neurologic Exam: alert, oriented x 3, cooperative, normal mood/affect, nml cerebellar function, sensation nml, No motor deficits Eye Exam: PERRL, EOMI, eyes nml inspection Ears, Nose, Throat Exam: normal ENT inspection, pharynx normal, moist mucous membranes Neck Exam: normal inspection, non-tender, supple, full range of motion Respiratory Exam: normal breath sounds, lungs clear, No respiratory distress Cardiovascular Exam: regular rate/rhythm, normal heart sounds Gastrointestinal/Abdomen Exam: soft, No tenderness, No mass Pelvic Exam: deferred Rectal Exam: deferred Back Exam: normal inspection, normal range of motion, No CVA tenderness, No vertebral tenderness Extremity Exam: normal inspection, normal range of motion Skin Exam: normal color, warm, dry Final Diagnosis/Problem List - Final Discharge Diagnosis/Problem (1) Chest pain Current Visit: Yes Status: Resolved Code(s): R07.9 - CHEST PAIN, UNSPECIFIED (2) Elevated d-dimer Current Visit: Yes Status: Resolved Code(s): R79.89 - OTHER SPECIFIED ABNORMAL FINDINGS OF BLOOD CHEMISTRY - Discharge Discharge Date: 08/12/22 Disposition: Home, Self-Care Condition: Stable Prescriptions: New Fluticasone Propionate [Flonase NASAL] 1 gm NS DAILY Sucralfate 1 gm [Carafate 1 GM] 1 g PO BID 30 Days #60 tablet Continue Mesalamine 1.2 gm PO BID Levothyroxine Sodium [Synthroid] 137 mcg PO DAILY Dicyclomine HCl 1 tab PO Q6H PRN PRN PRN Reason: Muscle Spasms Instructions: Ulcerative Colitis (DC) Follow up with: BORIS MCGINNIS PA [Primary Care Provider] - 08/18/22 10:00 am Forms: Discharge Instructions
[2022-08-12] MEDS ORDERED: Flonase NASAL NS SCH (13:00)
== END 2022-08-12 12:43 | disposition home or self-care (01) ==
LOC: ED 05:08 → MED SURG 08:35
PROVIDERS: ADMIT General Practice; ATTEND General Practice
DX: R07.9 Chest pain, unspecified (principal); R79.89 Other specified abnormal findings of blood chemistry; E78.5 Hyperlipidemia, unspecified; Z79.899 Other long term (current) drug therapy; Z20.828 Contact with and (suspected) exposure to other viral communicable diseases
CPT/HCPCS: 0241U; 36000; 36415; 71045; 71260; 80053; 80061; 82150; 82947; 83036; 83605; 83690; 83721; 83880; 84436; 84443; 84484; 85025; 85027; 85379; 93005; 94760; 96374; 96375; 99285; J1200; J2405; J2920; J2930; A9270-GY